=== PATIENT | male | born 1950 | race Caucasian/White ===

== ENCOUNTER 2023-02-04 11:38 | Outpatient (REF) | payer OTHER, SELFPAY ==
[2023-02-04 13:59] LABS: Anion Gap 16 (12-20); Blood Urea Nitrogen 14 mg/dL (9-16); Calcium 9.4 mg/dL (8.4-10.2); Carbon Dioxide 27 mmol/L (22-29); Chloride 103 mmol/L (96-108); Estimated Glomerular Filt Rate 56; Glucose Random 94 mg/dL (60-115); Potassium 4.7 mmol/L (3.3-5.1); Sodium 141 mmol/L (135-145)
[2023-02-04 14:26] LABS: Folate 9.2 ng/mL (> or = 4.0); T4 Thyroxine 8.9 ug/dL (4.5-12.0); Thyroid Stimulating Hormone 2.04 uIU/mL (0.32-4.0); Vitamin B12 458 pg/mL (200-900); Vitamin D 25-OH Total 24.8 ng/mL (>30)
[2023-02-07 16:54] LABS: Homocysteine 17.4 umol/L (<11.4)
[2023-02-09 16:43] LABS: Methylmalonic Acid 664 nmol/L (87-318)
== END 2023-02-04 11:39 | disposition home or self-care (01) ==
LOC: HO.LAB 11:38
PROVIDERS: PCP Internal Medicine; Visit Provider Psychiatry & Neurology Neurology
DX: G31.84 Mild cognitive impairment of uncertain or unknown etiology (principal); E55.9 Vitamin D deficiency, unspecified
CPT/HCPCS: 36415; 80048; 82306; 82607; 82746; 83090; 83921; 84436; 84443